=== PATIENT | female | born 1945 | race Caucasian/White ===

== ENCOUNTER 2023-02-22 08:42 | Inpatient (IN) ==
--- NOTE | 2023-02-11 16:37 | Anesthesiology Consultation ---
Date of Service February 11, 2023 Assessment & Plan (1) Encounter for pre-operative examination: Chart Review Chart Review: Acceptable Risk for Surgery and Patient NOT seen in Pre Admission Testing Significant PONV per records (surgeon aware and would like to avoid vigorous heaving post op to decrease chance of bleeding s/p nephrectomy) -Infectious Disease screening: Per PAT nursing assessment on 02/11/23. No known infectious disease contacts in past 10 days or current infectious disease symptoms. No recent travel outside the country. Right ESWL 01/21/23 at [facility]= Done under [place] with LMA #4 atraumatic. Per anesthesia progress note 01/21/23= "pt had vomiting after LMA removed. Auscultation, SaO2 and CXR wnl in PACU. There is no evidence of aspiration." History Surgery Operation Date: 02/22/23 10:50 Proposed Procedures p Robotic Laparoscopic Assisted Partial Nephrectomy - Right - Jose Ramirez MD Height/Weight Height: 5 ft 7 in Weight: 60.328 kg Allergies Allergy/AdvReac Type Severity Reaction Status Date / Time rifampin Allergy Unknown Fever - Verified 02/11/23 11:41 SEE NOTES BELOW amoxicillin AdvReac Unknown Dizziness Verified 02/11/23 11:41 Medications Home Medications Medication Instructions Recorded Confirmed Last Taken cholecalciferol (vitamin D3) 50 50 mcg PO QAM 12/09/22 02/11/23 01/20/23 mcg (2,000 unit) capsule ciprofloxacin HCl 500 mg tablet 500 mg PO BID 10 days #20 tabs 02/07/23 02/11/23 Unknown Past Medical History Medical History Bilateral cataracts Family history of reaction to anesthesia n/v - mom and sister. History of COVID-19 2020, no residual symptoms History of ulcerative colitis under control for yrs. Kidney stones Nausea and vomiting after administration of anesthetic agent PVC's (premature ventricular contractions) asymptomatic/holter, echo and nuclear stress all (-) /monitors.; f/u pcp Right renal mass Reason for upcoming partial nephrectomy UTI (urinary tract infection) recent completion of Bactrim on 01/10/23 - symptoms resolved except for occ urgency.; recent culture 1 week ago indicated an infection (pt having no symptoms of infection) so ordered abx to be taken 1 week prior to surgery on 02/22/23 Past Family History Family History Father Diabetes Hypertension Mother Diabetes Breast cancer Sister Diabetes Sister Diabetes Other Family history of colon cancer Past Surgical History Surgical History H/O rectocele repair H/O total hysterectomy History of appendectomy History of bunionectomy of right great toe History of cholecystectomy History of colonoscopy History of right breast biopsy benign. History of tonsillectomy and adenoidectomy History of torn meniscus of left knee hx sx repair Hx of lithotripsy Meningioma removal of 2003. [place]. discharged from neuro. No need to follow w/ neuro. Social History Smoking Status: Never smoker Do You Dip or Chew Tobacco: No Hx Alcohol Use: No Hx Substance Use: No substance use type: does not use Testing Laboratory Results 02/04/23= WBC: 6.43 H/H: 15.2/45.1 PLATELETS: 246 SODIUM: 138 POTASSIUM: 4.0 CHLORIDE: 107 CO2: 25.4 BUN: 15.3 CREATININE: 0.88 GLUCOSE: 110 URINE CULTURE: >100,000 CFU/ML Enterobacter cloacae Electrocardiogram Date: 01/03/23 SR with occ PVCs at 67bpm Otherwise normal EKG per cardio Chest X-Ray Date: 01/21/23 Findings: + NAD FINDINGS: Lung volumes are normal. Lungs are clear. There is no pneumothorax or pleural effusion. There is mild cardiomegaly. Mediastinal contours are normal. There is no evidence for pulmonary edema. Stress Test Date: 09/14/22 Type: nuclear Lexiscan stress EKG is negative for ischemia. Normal hemodynamic response. Nonspecific symptoms with pharmacological stress. Lexiscan Cardiolite myocardial perfusion imaging is negative for ischemia and/or prior infarction. Gated SPECT: The calculated LVEF is 70%. No transient ischemic dilation
[~2023-02-22 08:42] MED LIST: ACETAMINOPHEN 1000 MG/100 ML IV IV ONE; LACTATED RINGER'S 1,000 ML IV SCH; ceFAZolin 2000MG 2,000 MG/15 ML SYR IV SCH
[2023-02-22] MEDS ORDERED: APREPITANT 40 MG CAP PO ONE (09:41)
[2023-02-22] MEDS ORDERED: HYDROmorphone INJ 1 MG/ML SYRINGE IV PRN (10:02)
[2023-02-22] MEDS ORDERED: PROMETHAZINE HCL 12.5 MG in SODIUM CHLORIDE 0.9% 50 ML IV PRN (10:02)
[2023-02-22] MEDS ORDERED: ONDANSETRON INJ 2 MG/ML 2 ML VIAL IV PRN ×2 (10:02→15:10)
[2023-02-22] MEDS ORDERED: ATROPINE SULFATE 0.1 MG/ML 10ML SYR IV PRN (10:02)
[2023-02-22] MEDS ORDERED: ePHEDrine sulfate 50 MG/ML AMP IV PRN (10:02)
--- NOTE | 2023-02-22 10:23 | History & Physical Bridge Note ---
Date of Service February 22, 2023 History & Physical Bridge Note I have examined the patient, reviewed the History & Physical and in the interval since the performance of the History & Physical I have noted the following changes of clinical significance: no changes noted
[2023-02-22] MEDS ORDERED: DexMEDEtomidine HCL IV 100 MCG/ML VIAL IV ONE (10:37)
[2023-02-22] MEDS ORDERED: FAMOTIDINE/PF 20 MG/2 ML VIAL IV ONE (10:37)
[2023-02-22] MEDS ORDERED: BUPIVACAINE 0.5 % 5 MG/1 ML MPF 30ML VIAL ONE (10:37)
[2023-02-22] MEDS ORDERED: MIDAZOLAM HCL 1 MG/ML 2ML VIAL ONE (10:40)
[2023-02-22] MEDS ORDERED: fentaNYL citrate PF 100 MCG/2 ML VIAL ONE ×2 (10:40→12:36)
[2023-02-22] MEDS ORDERED: KETAMINE 50 MG/5 ML SYRINGE ONE (10:41)
[2023-02-22] MEDS ORDERED: ALBUMIN HUMAN 5% 12.5 GM/250 ML VIAL IV ONE (10:54)
[2023-02-22] MEDS ORDERED: ROCURONIUM BROMIDE 10 MG/ML 5 ML VIAL IV ONE ×4 (12:26→12:42)
[2023-02-22] MEDS ORDERED: ePHEDrine sulfate 50 MG/5 ML SYR ONE (12:26)
[2023-02-22] MEDS ORDERED: DEXAMETHASONE SOD INJ 4 MG/ML VIAL ONE (12:26)
[2023-02-22] MEDS ORDERED: PROPOFOL IV EMULSION 10 MG/ML 20 ML VIAL IV ONE (12:26)
[2023-02-22] MEDS ORDERED: LIDOCAINE 2% 2 ML VIAL/AMP(20MG/ML) INFIL ONE (12:26)
[2023-02-22] MEDS ORDERED: GLYCOPYRROLATE 0.2 MG/ML VIAL ONE (12:26)
[2023-02-22] MEDS ORDERED: METOCLOPRAMIDE HCL INJ 5 MG/ML 2 ML VIAL ONE (12:26)
[2023-02-22] MEDS ORDERED: PROPOFOL IV EMULSION 10 MG/ML 100 ML VIAL IV ONE (12:42)
[2023-02-22] MEDS ORDERED: MANNITOL 25% 12.5 GM/50 ML VIAL IV ONE ×2 (12:59→13:26)
[2023-02-22] MEDS ORDERED: SURGICEL ABSORB HEMOSTAT 2IN X 14IN TOP ONE (13:39)
[2023-02-22] MEDS ORDERED: FLOSEAL HEMOSTATIC MATRIX 10ML TOP ONE (13:39)
[2023-02-22] MEDS ORDERED: TISSEEL FIBRIN SEALANT 10ML TOP ONE (13:39)
[2023-02-22] MEDS ORDERED: SUGAMMADEX SODIUM 200 MG/2 ML VIAL IV ONE (13:42)
--- NOTE | 2023-02-22 14:15 | Operative Report ---
PG Post Operative Report Pre & Post Diagnosis Operation Date: 02/22/23 10:50 Pre-Op Diagnosis: Right Renal Mass Post-Op Diagnosis: Right Renal Mass I identified the patient and participated in the time-out.: Yes Procedure Operation Date: 02/22/23 10:50 Actual Procedures p Robotic Assisted Laparoscopic Right Partial Nephrectomy (Right) - Jose Ramirez MD Surgeon Jose Ramirez MD Leadership Program Internship Winter Rivera; Mauricio Reza Estimated Blood Loss 100 Findings Consistent with Post-Op Diagnosis Specimens Right renal mass Description of Procedure Patient was identified in the preoperative holding area, appropriate informed consents reviewed and completed and she was transported to the operating suite. Upon arrival she received appropriate preoperative antibiotics and general anesthesia. She was placed in the left side down right side up lateral decubitus position with the bed flexed. She was padded and braced appropriately. To begin the surgical portion of the case I passed a Veress needle into the right upper quadrant just under the costal margin. Insufflation was uniform and symmetrical. She has numerous prior surgical scars. I carefully marked my dissipated and desired port sites and then I chose the potential port site for this from her prior scars to enter the abdomen with a 5 mm 0 degree lens and a 8 mm robotic port and visual primer inserting machine operator. Fortunately, there was not an issue with adhesions with the exception of the midline. I was able to place 4 robotic ports in a linear fashion beginning just below the costal margin and extending down into her right lower quadrant. I then was able to utilize these ports to perform lysis of adhesions and freed the midline both infra and supraumbilically. This allowed placement of 212 mm purchasing administrative assistant ports, one just below the umbilicus and the other just above. I also was able to place a 5 mm subxiphoid port for liver retraction. We then docked the robot and began the intra-abdominal portion of the case. She has very scant intra-abdominal fat. The liver was covering the majority of the kidney. The placement of the liver retractor allowed the liver to be lifted and better visualize the colon underlying kidney. I was able to incise laterally to the colon and medialize it. The duodenum was visualized and was pushed medially off of the hilar structures of the kidney. Just below the kidney I was able to elevate the ureter and dissected posterior to it and onto the psoas muscle. We then utilized one of the robotic instruments to help elevate the kidney and stretch the hilar structures. Dissection of the hilum was meticulously carried out. 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 We were able to identify the true renal artery as well as the branches and followed these to confirm we had not missed a secondary artery. She has 2 renal veins. We are able to dissect around both of these until they are controlled. I then turned my attention to exposure of the mass. By incising the peritoneum overlying the kidney I was able to retract the kidney inferiorly and better expose the mass. Her limited Gerota's fascia made visualization of normal renal parenchyma quite easy and I was able to circumferentially expose renal parenchyma that I felt was clear of the mass. I then performed an ultrasound to confirm the depth of invasion of the mass and ultimately marked my incision site in the renal capsule. We then preplaced 2 renal reconstruction stitches (2-O v-jalen). 12.5 g of mannitol was administered and a short curved bulldog clamp was placed across the common renal artery. Of note, one of the branches appeared to still maintain a pulse so a second short bulldog clamp was placed across this particular branch. We then clamped the main renal vein but left the inferior pole renal vein open. I turned my attention to excision of the mass. Following the premarked line I was able to incise the capsule and the tumor en bloc. There is no visual rupture of the tumor during this resection. After was entirely freed it was pushed out of our field of immediate view to allow for renal reconstruction. Using the preplaced sutures and a sliding clip technique I was able to reapproximate the renal parenchyma and capsule. 4 passes across the kidney were performed to allow the reconstruction. The vascular clamps were then removed and the opposite pattern in which they were placed. First the venous clamp was removed followed by the main renal artery and ultimately the renal artery branch. There was excellent hemostasis with each in the kidney appeared to reperfuse appropriately. We then placed Floseal across the defect followed by Tisseel. There was no Gerota's fascia to reapproximate over this. Instead the liver retractor was removed and the liver was allowed to drop over the kidney. The 12 mm midline ports were closed with a Brad-Angie device. The specimen was extracted through the most inferior robotic port which was slightly expanded and then closed with a 0 Vicryl through the fascia. All skin incisions were infiltrated with half percent Marcaine and closed with Dermabond and 4-0 Monocryl. A Santamaria catheter was left in place. In total she had 14 minutes of warm ischemia time. Winter Rivera and Mauricio Reza assisted from incision to closure I attest to the content of the Intraoperative Record and any orders documented therein. Any exceptions are noted below.
--- NOTE | 2023-02-22 15:03 | Anesthesiology Progress Note ---
Date of Service February 22, 2023 Anesthesia Post Procedure Vital Signs Vital Signs: Temp Pulse Pulse Resp BP Pulse Ox O2 Del Method 02/22/23 14:50 36.4 C L 73 18 106/58 L 96 Nasal Cannula 02/22/23 14:40 72 20 95/56 L 96 Nasal Cannula 02/22/23 14:30 74 18 96/50 L 95 Nasal Cannula 02/22/23 14:20 79 20 92/55 L 97 Oxymask 02/22/23 14:10 75 18 94/56 L 98 Oxymask 02/22/23 14:00 36.4 C L 83 20 103/61 100 Oxymask 02/22/23 08:59 36.6 C 61 20 145/79 H 98 Room Air O2 Flow Rate 02/22/23 14:50 2 02/22/23 14:40 2 02/22/23 14:30 2 02/22/23 14:20 6 02/22/23 14:10 6 02/22/23 14:00 6 02/22/23 08:59 Pain Intensity Abdomen: Pain Intensity: 3 Transfer of Care Handoff Completed per policy Notes Mental Status: alert / awake / arousable Patient Amnestic to Procedure: Yes Nausea / Vomiting: adequately controlled Pain: adequately controlled Airway Patency, RR, SpO2: stable & adequate BP & HR: stable & adequate Hydration State: stable & adequate Anesthetic Complications: no major complications apparent and Pt Satisfied with anesthetic care Notes: No nausea. Pain controlled.
[2023-02-22 15:07] LABS: Hematocrit (blood only) 36.2 % (37.0-47.0); Hemoglobin 11.9 g/dl (12.0-16.0); Mean Corpuscular Hemoglobin 30.7 pg (25.0-34.0); Mean Corpuscular Hgb Conc 32.9 g/dL (32.0-36.0); Mean Corpuscular Volume 93.3 fL (80.0-100.0); Mean Platelet Volume 12.3 fL (9.4-12.4); Platelet Count 167 K/uL (130-400); RDW Coefficient of Variation 12.7 % (11.5-14.5); RDW Standard Deviation 43.6 fL (36.4-46.3); Red Blood Count 3.88 M/uL (4.20-5.40); White Blood Count 7.86 K/ul (4.8-10.8)
[2023-02-22] MEDS ORDERED: MoRPHine SULFATE 2 MG/ML CARP IV PRN ×2 (15:10→15:15)
[2023-02-22] MEDS ORDERED: oxyCODONE HCL IR 5 MG TAB (IMMEDIATE RELEASE) PO PRN (15:10)
[2023-02-22 15:20] LABS: BUN Creatinine Ratio 15.1 (10-20); Calcium 8.3 mg/dl (8.6-10.3); Est GFR (Non-African American) 64.7 ml/min; Potassium 3.9 mmol/L (3.5-5.1)
[2023-02-22] MEDS: LACTATED RINGER'S 1,000 ML IV SCH (15:46)
[2023-02-22 15:55] LABS: Basophils # (auto) 0.02 K/uL (0.00-0.20); Basophils % (auto) 0.3 %; Immature Granulocytes # (auto) 0.05 K/uL (0.01-0.20); Immature Granulocytes % (auto) 0.6 %; Lymphocytes # (auto) 0.35 K/uL (1.20-3.40); Lymphocytes % (auto) 4.5 %; Monocytes # (auto) 0.09 K/uL (0.11-0.59); Monocytes % (auto) 1.1 %; Neutrophils # (auto) 7.35 K/uL (1.40-6.50); Neutrophils % (auto) 93.5 %
[2023-02-22] MEDS: DOCUSATE SODIUM 100 MG CAP PO SCH (20:42)
[2023-02-22] MEDS: ceFAZolin 2000MG 2,000 MG/15 ML SYR IV SCH (20:43)
[2023-02-22] MEDS: oxyCODONE HCL IR 5 MG TAB (IMMEDIATE RELEASE) PO PRN (20:44)
[2023-02-23] MEDS: LACTATED RINGER'S 1,000 ML IV SCH (01:37)
[2023-02-23] MEDS: ceFAZolin 2000MG 2,000 MG/15 ML SYR IV SCH (03:07)
[2023-02-23] MEDS: ACETAMINOPHEN 325 MG TAB PO PRN ×2 (03:24→15:10)
[2023-02-23 08:36] LABS: Basophils # (auto) 0.02 K/uL (0.00-0.20); Basophils % (auto) 0.2 %; Hematocrit (blood only) 33.4 % (37.0-47.0); Hemoglobin 11.2 g/dl (12.0-16.0); Immature Granulocytes # (auto) 0.05 K/uL (0.01-0.20); Immature Granulocytes % (auto) 0.4 %; Lymphocytes % (auto) 8.9 %; Mean Corpuscular Hemoglobin 30.8 pg (25.0-34.0); Mean Corpuscular Hgb Conc 33.5 g/dL (32.0-36.0); Mean Corpuscular Volume 91.8 fL (80.0-100.0); Mean Platelet Volume 12.5 fL (9.4-12.4); Monocytes # (auto) 0.98 K/uL (0.11-0.59); Monocytes % (auto) 7.9 %; Neutrophils # (auto) 10.26 K/uL (1.40-6.50); Neutrophils % (auto) 82.6 %; Platelet Count 182 K/uL (130-400); RDW Coefficient of Variation 12.8 % (11.5-14.5); RDW Standard Deviation 43.2 fL (36.4-46.3); Red Blood Count 3.64 M/uL (4.20-5.40); White Blood Count 12.41 K/ul (4.8-10.8)
[2023-02-23 08:47] LABS: BUN Creatinine Ratio 13.2 (10-20); Calcium 8.6 mg/dl (8.6-10.3); Creatinine Clr Calc Pharmacy 49.1 ml/min; Est GFR (Non-African American) 60.4 ml/min; Potassium 3.9 mmol/L (3.5-5.1)
--- NOTE | 2023-02-23 09:15 | Urology Progress Note ---
Date of Service February 23, 2023 Assessment & Plan (1) Renal mass: Plan: Postop day #1 status post right robotic partial nephrectomy Recovering appropriately Santamaria out Ambulate Possible discharge home tomorrow Admission and Anticipated Discharge Date Admission Date: February 22, 2023 Subjective Doing very well Minimal pain Was out of bed last night Urine clear Physical Exam Physical Exam: Incisions all appropriate Only discomfort seems to be in her right shoulder from insufflation pressure and diaphragmatic irritation Urine clear Results & Data Vital Signs (Past 12 Hours) Vital Signs Temp Pulse Resp BP Pulse Ox O2 Del Method 02/23/23 07:17 36.9 C 74 16 120/58 L 94 Room Air 02/23/23 03:10 36.7 C 66 16 103/51 L 93 Room Air 02/22/23 23:02 36.8 C 63 16 108/68 94 Room Air PG Care Time/CCT Total # of Minutes Spent Total Time Spent with Patient: Total time spent is greater than 50% in coordination of care (as documented) at patient's floor/unit and/or counseling patient: Coding Level of Care Code None Diagnoses Renal mass N28.89
[2023-02-23] MEDS: DOCUSATE SODIUM 100 MG CAP PO SCH ×2 (09:34→20:19)
[2023-02-23] MEDS: oxyCODONE HCL IR 5 MG TAB (IMMEDIATE RELEASE) PO PRN (20:20)
[2023-02-24] MEDS: ACETAMINOPHEN 325 MG TAB PO PRN (07:40)
[2023-02-24] MEDS: DOCUSATE SODIUM 100 MG CAP PO SCH (07:44)
--- NOTE | 2023-02-24 08:46 | Urology Progress Note ---
Date of Service February 24, 2023 Assessment & Plan (1) Renal mass: Plan: Postop day #2 status post right robotic partial nephrectomy Afebrile (Tmax 37.6 this morning). Hemodynamically stable. Labs reviewed - Voiding spontaneously following catheter removal yesterday. Minimal pain. Ambulating without issue. Tolerating diet. Admission and Anticipated Discharge Date Admission Date: February 22, 2023 Subjective Pt examined at bedside this AM. Results & Data Vital Signs (Past 12 Hours) Vital Signs Temp Pulse Resp BP Pulse Ox O2 Del Method 02/24/23 07:28 37.6 C H 89 18 146/73 H 94 Room Air 02/23/23 22:02 37.1 C 80 18 107/54 L 94 Room Air PG Care Time/CCT Total # of Minutes Spent Total Time Spent with Patient: Total time spent is greater than 50% in coordination of care (as documented) at patient's floor/unit and/or counseling patient: Coding Diagnoses Renal mass N28.89
[2023-02-24 08:49] LABS: Basophils # (auto) 0.05 K/uL (0.00-0.20); Basophils % (auto) 0.4 %; Eosinophils # (auto) 0.04 K/uL (0.00-0.50); Eosinophils % (auto) 0.3 %; Hematocrit (blood only) 36.9 % (37.0-47.0); Hemoglobin 12.5 g/dl (12.0-16.0); Immature Granulocytes # (auto) 0.05 K/uL (0.01-0.20); Immature Granulocytes % (auto) 0.4 %; Lymphocytes # (auto) 1.07 K/uL (1.20-3.40); Lymphocytes % (auto) 8.1 %; Mean Corpuscular Hemoglobin 30.6 pg (25.0-34.0); Mean Corpuscular Hgb Conc 33.9 g/dL (32.0-36.0); Mean Corpuscular Volume 90.4 fL (80.0-100.0); Mean Platelet Volume 12.4 fL (9.4-12.4); Monocytes # (auto) 1.04 K/uL (0.11-0.59); Monocytes % (auto) 7.9 %; Neutrophils # (auto) 10.97 K/uL (1.40-6.50); Neutrophils % (auto) 82.9 %; Platelet Count 197 K/uL (130-400); RDW Standard Deviation 43.1 fL (36.4-46.3); Red Blood Count 4.08 M/uL (4.20-5.40); White Blood Count 13.22 K/ul (4.8-10.8)
[2023-02-24 08:50] LABS: BUN Creatinine Ratio 14.6 (10-20); Calcium 8.7 mg/dl (8.6-10.3); Creatinine Clr Calc Pharmacy 54.5 ml/min; Est GFR (African American) 79.4 ml/min; Est GFR (Non-African American) 68.5 ml/min; Potassium 3.7 mmol/L (3.5-5.1)
--- NOTE | 2023-02-24 09:09 | Urology Progress Note ---
Date of Service February 24, 2023 Assessment & Plan (1) Renal mass: Plan: Postop day #2 status post right robotic partial nephrectomy Afebrile (Tmax 37.6 this morning). Hemodynamically stable. Labs appropriatecreatinine 0.8at baseline Voiding adequately Plan for discharge home Admission and Anticipated Discharge Date Admission Date: February 22, 2023 Subjective Doing great overall No pain Ambulatory Good urine production Labs are all appropriateunchanged from preop Physical Exam Physical Exam: Abdomen soft, incisions appropriate Results & Data Vital Signs (Past 12 Hours) Vital Signs Temp Pulse Resp BP Pulse Ox O2 Del Method 02/24/23 07:28 37.6 C H 89 18 146/73 H 94 Room Air 02/23/23 22:02 37.1 C 80 18 107/54 L 94 Room Air PG Care Time/CCT Total # of Minutes Spent Total Time Spent with Patient: Total time spent is greater than 50% in coordination of care (as documented) at patient's floor/unit and/or counseling patient: Coding Level of Care Code None Diagnoses Renal mass N28.89
--- NOTE | 2023-02-24 17:05 | Discharge Summary ---
Date of Service February 24, 2023 Admission HPI Per Admitting Provider 77-year-old female with a right renal mass admitted for robotic partial nephrectomy Admission Exam Per Admitting Provider Constitutional well developed and well nourished Neck neck nontender Respiratory normal respiratory effort; no respiratory distress and does not use accessory muscles Cardiovascular Rate/Rhythm: regular rate Vessels: radial pulses present Extremities: no edema Gastrointestinal (Abdomen) Inspection/Auscultation: abdomen normal to inspection Percussion/Palpation: abdomen soft; abdomen nontender and no guarding Musculoskeletal Head/Neck/Chest: normocephalic and head atraumatic Extremities: extremities normal to inspection Skin no rashes and no lesions Trauma: no evidence of skin trauma Neurologic awake; not obtunded Speech / Cognition: normal speech Motor/Sensory: no tremor Psychiatric Orientation: alert and oriented x 3 Lymphatic no lymphadenopathy Principal Diagnosis Right renal mass Discharge Exam Constitutional well developed and well nourished; no acute distress Respiratory no respiratory distress and no labored breathing Gastrointestinal (Abdomen) Incisions appropriate, Dermabond intact Neurologic moves all extremities and awake Psychiatric Orientation: alert and oriented x 3 Discharge Data Allergies Allergy/AdvReac Type Severity Reaction Status Date / Time rifampin Allergy Unknown Fever - Verified 02/22/23 09:05 SEE NOTES BELOW phenylalanine Allergy Verified 02/24/23 08:48 saccharin Allergy Verified 02/24/23 08:48 amoxicillin AdvReac Unknown Dizziness Verified 02/22/23 09:05 sorbitol AdvReac Unknown Headache Verified 02/23/23 17:34 Procedures Performed Operation Date: 02/22/23 10:50 Actual Procedures p Robotic Assisted Laparoscopic Right Partial Nephrectomy (Right) - Jose Ramirez MD Hospital Course (1) Renal mass: Plan 77-year-old female admitted status post right robotic partial nephrectomy. Patient tolerated procedure well. No acute issues postoperatively. Patient remained afebrile and hemodynamically stable. Labs were appropriate. Patient passed a voiding trial postop day #1. She tolerated a diet. Ambulated without issue. Reported minimal pain. She was subsequently discharged home on postop day #2. She was in stable condition at time of discharge. All discharge instructions were reviewed. Postoperative follow-up appointment in place. Total Time Total Time Spent Total Time Spent (In Minutes): 15 Discharge Plan Discharge Items Patient Disposition: Home - Self-Care Reason For Visit: Renal Mass Discharge Diagnosis: Renal Mass Activity: Per Instructions section Lifting: No more than 10 pounds Bathing Comment: Ok to shower. No tub baths or soaks. Sexual Activity: Wait until after follow-up appointment Exercise/Sports: Wait until after follow-up appointment Driving/Machine Use: Do not drive if taking prescription pain medication. Non-emergency contact: Surgeon and Urologist Call non-emergency contact if: you have any medication questions, your symptoms worsen, your pain is not controlled, you have a fever, your wound has increased redness, your wound has increased drainage and your wound pain has increased Follow-up/Referrals: Jose Ramirez MD [Physician] - 03/09/23 11:00 am Ramsey Rivera DO [Primary Care Provider] - Diet: Regular Addtl Attending Provider Instructions: Please take all medications as prescribed and keep all follow-ups as scheduled. Please call our office at [phone] with any questions, concerns or need to reschedule appointments for any reason. We are happy to assist you. The Urology office will contact you to arrange a follow-up visit. Recovering at home: We recommend having someone with you for the first few days after surgery to help care for you. It is okay to shower tomorrow. Please avoid swimming, bathing or using hot tub until incisions are well healed. Avoid driving until you are not requiring pain medication any further. Walk at least a few times a day. Increase your distance, as you feel able. Stairs in your home are okay. Please avoid strenuous or sexual activity until your follow-up. We recommend using stool softener (i.e. Colace) to prevent constipation and straining, especially the first two weeks post operatively. Call [facility] at [phone] if you experience: Chest pain or trouble breathing (call [phone] or go to the hospital). Fever of 101F or higher Symptoms of infection at incision site, including redness or swelling, warmth, or bad-smelling drainage If you are unable to urinate Pain that is not controlled with medicines Pending Studies at Discharge: Yes (pathology) Stand-Alone Forms: My [facility], Pain - Opioid Pain Management, Smoking Cessation Medications and DC Order Prescriptions: New oxycodone-acetaminophen [Percocet] 5-325 mg tablet 1 tab PO Q8H PRN (Reason: Pain) Qty: 7 0RF Continued ciprofloxacin HCl 500 mg tablet 500 mg PO BID 10 Days Qty: 20 0RF Rx Instructions: Start 02/15/23, one week prior to procedure. cholecalciferol (vitamin D3) 50 mcg (2,000 unit) capsule 50 mcg PO QAM Discharge Orders: Discharge Order (Routine); Ordered 02/24/23 Ordered By: Winter Gallegos/Other Patient Handouts: DVT Post Op Prevention Admission Data Admit Date/Time: 02/22/23 14:02 Attending Provider: Jose Ramirez Admit Provider: Jose Ramirez Primary Care Provider: Ramsey Rivera Other Interventions: Discharge Summary Assessment (RN) Last Done: 02/24/23 13:13 Coding Level of Care Code 94761 IN/OBS DISCH 30 MIN/LESS Diagnoses Renal mass N28.89
--- NOTE | 2023-03-01 09:15 | Coding Query ---
PATHOLOGY To promote full compliance with coding requirements relating to patient care, physician participation is requested in all cases of hat steamer uncertainty. Please assist us with the question(s) below: Please review the Pathology report and please document any relevant diagnosis(es) below: Clear Cell Renal Cell Carcinoma Diagnosis(es): Thank you Aliza HERNANDEZ
== END 2023-02-24 14:24 | disposition home or self-care (01) | DRG 658 ==
LOC: ASU 08:42 → 3N 14:02